=== PATIENT | male | born 1990 | race Caucasian/White ===

== ENCOUNTER 2017-11-22 07:57 | Emergency (ER) | payer OTHER ==
[~2017-11-22] VITALS: Ht 175.3 cm; Wt 69.7 kg
[2017-11-22] MEDS ORDERED: MOTRIN800 MG PO (09:36)
[2017-11-22] MEDS ORDERED: FLEXERIL10 MG PO (09:37)
[2017-11-22 10:04] VITALS: BP 121/62
== END 2017-11-22 10:04 | disposition home or self-care (01) ==
LOC: EME 07:57
DX: S13.9XXA Sprain of joints and ligaments of unspecified parts of neck, initial encounter (principal); V49.50XA Passenger injured in collision with unspecified motor vehicles in traffic accident, initial encounter; Y92.410 Unspecified street and highway as the place of occurrence of the external cause; J45.909 Unspecified asthma, uncomplicated; F17.200 Nicotine dependence, unspecified, uncomplicated
CPT/HCPCS: 71045; 72040; 99281; 99285